=== PATIENT | male | born 1970 | race Caucasian/White ===

== ENCOUNTER 2017-09-14 08:29 | Outpatient (CLI) | payer OTHER | END 2017-09-14 20:03 | disposition home or self-care (01) | LOC: MCT 08:29 | DX: G31.89 Other specified degenerative diseases of nervous system (principal) | CPT/HCPCS: 70450 ==

== ENCOUNTER 2019-11-30 18:21 | Inpatient (IN) | payer OTHER, SELFPAY ==
[~2019-11-30] VITALS: Ht 182.9 cm; Wt 99.8 kg
[2019-11-30 18:30] VITALS: BP 108/65
[2019-11-30] MEDS ORDERED: POTA8TER12 GT (18:41)
[2019-11-30] MEDS ORDERED: ASPI-1822 GT (18:41)
[2019-11-30] MEDS ORDERED: ASCO500T95 GT (18:41)
[2019-11-30] MEDS ORDERED: MULT-1868 GT (18:41)
[2019-11-30] MEDS ORDERED: SENN-74 GT (18:41)
[2019-11-30] MEDS ORDERED: FURO-572 GT (18:41)
[2019-11-30] MEDS ORDERED: ATOR20TA GT (18:41)
[2019-11-30] MEDS ORDERED: KEP500L GT (18:41)
[2019-11-30] MEDS ORDERED: OMEP20EC11 GT (18:41)
[2019-11-30] MEDS ORDERED: NACL 0.9% 1,000 ML IV SCH (18:46)
[2019-11-30] MEDS ORDERED: cefTRIAXone 1,000 MG in DEXT 5% MINI-BAG PLUS 50 ML IV ONE (18:50)
[2019-11-30] MEDS ORDERED: ACETAMINOPHEN 325 MG SUPP RC ONE (18:50)
[2019-11-30] MEDS ORDERED: cefTRIAXone 1,000 MG VIAL ONE (19:18)
[2019-11-30 19:46] LABS: BASOPHILS % (AUTO) 0.4 % (0.0-2.0); EOSINOPHILS # (AUTO) 0.2 K/uL (0-0.4); EOSINOPHILS % (AUTO) 2.7 % (0.0-4.0); HEMATOCRIT 46.6 % (36-52); HEMOGLOBIN 15.3 g/dL (12.0-18.0); LYMPHOCYTES # (AUTO) 0.4 K/uL (2.0-11.5); LYMPHOCYTES % (AUTO) 6.5 % (20.5-51.1); MEAN CORPUSCULAR HEMOGLOBIN 30 pg (27-31); MEAN CORPUSCULAR HGB CONC 33 g/dL (33-37); MEAN CORPUSCULAR VOLUME 92.6 fL (80-94); MONOCYTES # (AUTO) 0.7 K/uL (0.8-1.0); MONOCYTES % (AUTO) 12.5 % (1.7-9.3); NEUTROPHILS # (AUTO) 4.4 K/uL (1.8-7.7); NEUTROPHILS % (AUTO) 77.9 % (42.2-75.2); PLATELET COUNT (AUTO) 148 K/uL (140-450); RED BLOOD CELL COUNT(AUTO) 5.03 MIL/uL (4.20-6.10); RED CELL DISTRIBUTION WIDTH 14.5 % (11.6-13.7); WHITE BLOOD COUNT (AUTO) 5.7 K/uL (4.8-10.8)
[2019-11-30 19:56] LABS: ALBUMIN 3.8 g/dL (3.4-5.0); ANION GAP 12.9 (8-16); POTASSIUM 3.9 mmol/L (3.5-5.1); PROTHROMBIN TIME 10.7 secs (10.8-13.4)
[2019-11-30 20:00] LABS: APPEARANCE,URINE CLEAR (CLEAR); BILIRUBIN,URINE NEGATIVE (NEGATIVE); BLOOD, URINE 1+ (NEGATIVE); COLOR,URINE YELLOW (YELLOW); LEUKOCYTE ESTERASE ,URINE NEGATIVE (NEGATIVE); NITRITE, URINE NEGATIVE (NEGATIVE); PH,URINE 8.5 (5.0-9.0); UGLUCOSE NEGATIVE (NEGATIVE)
[2019-11-30 20:25] LABS: RBC,URINE 20-50 /HPF (0-5); WBC,URINE 0-5 /HPF (0-5)
[2019-11-30] MEDS: NACL 0.9% 1,000 ML IV SCH (20:33)
[2019-11-30] MEDS ORDERED: ACETAMINOPHEN 325 MG TAB PO PRN (20:35)
[2019-11-30] MEDS ORDERED: ONDANSETRON 4 MG/2 ML VIAL IM/IVP PRN (20:35)
[2019-11-30] MEDS ORDERED: DOCUSATE SODIUM 100 MG GELCAP PO PRN (20:35)
[2019-11-30] MEDS ORDERED: HYDROcodone/APAP 7.5/325 MG 1 TAB PO PRN (20:35)
[2019-11-30] MEDS ORDERED: NACL 0.9% 1,000 ML IV ONE ×2 (21:00→22:05)
[2019-11-30] MEDS ORDERED: PIPERACILLIN/TAZOBACTAM 3.375 GM in DEXTROSE 5% 50 ML IV ONE (21:00)
[2019-11-30 21:05] LABS: CHOL/HDL RATIO 2.7 (1-4.5); MAGNESIUM 2.1 mg/dL (1.8-2.4); PHOSPHORUS 2.6 mg/dL (2.5-4.9); THYROID STIMULATING HORMONE 0.8 uIU/mL (0.34-3.74)
[2019-11-30] MEDS ORDERED: PIPERACILLIN/TAZOBACTAM 3.375 GM VIAL IV ONE (21:06)
[2019-11-30 22:14] LABS: BARBITURATE, URINE NEGATIVE ng/ml (NEG <=200); BENZODIAZEPINE, URINE NEGATIVE ng/mL (NEG <=200); CANNABINOID, URINE NEGATIVE ng/mL (NEG <=50); COCAINE, URINE NEGATIVE ng/mL (NEG <=300); OPIATE, URINE NEGATIVE ng/mL (NEG <=2000); PHENCYCLIDINE SCREEN,URINE NEGATIVE ng/mL (NEG <=25)
[2019-12-01] MEDS ORDERED: DEXAMETHASONE 4 MG/ML VIAL PO ONE (01:55)
[2019-12-01] MEDS ORDERED: ADENOSINE 6 MG/2 ML VIAL IVP ONE (02:20)
[2019-12-01] MEDS ORDERED: AZITHROMYCIN 250 MG TAB GT ONE (05:00)
[2019-12-01 07:07] LABS: MYOGLOBIN, SERUM 46 ng/mL (28-72)
[2019-12-01 07:48] LABS: BASOPHILS % (AUTO) 0.4 % (0.0-2.0); EOSINOPHILS % (AUTO) 0.2 % (0.0-4.0); HEMATOCRIT 42.2 % (36-52); LYMPHOCYTES # (AUTO) 0.8 K/uL (2.0-11.5); LYMPHOCYTES % (AUTO) 9.7 % (20.5-51.1); MEAN CORPUSCULAR HEMOGLOBIN 31 pg (27-31); MEAN CORPUSCULAR HGB CONC 33 g/dL (33-37); MEAN CORPUSCULAR VOLUME 92.2 fL (80-94); MONOCYTES % (AUTO) 13.1 % (1.7-9.3); NEUTROPHILS % (AUTO) 76.6 % (42.2-75.2); PLATELET COUNT (AUTO) 133 K/uL (140-450); RED BLOOD CELL COUNT(AUTO) 4.57 MIL/uL (4.20-6.10); RED CELL DISTRIBUTION WIDTH 14.3 % (11.6-13.7); WHITE BLOOD COUNT (AUTO) 7.8 K/uL (4.8-10.8)
[2019-12-01 08:34] LABS: ALBUMIN 3.2 g/dL (3.4-5.0); ANION GAP 12.5 (8-16); CARBON DIOXIDE 26.3 mmol/L (21-32); PHOSPHORUS 2.6 mg/dL (2.5-4.9); POTASSIUM 3.8 mmol/L (3.5-5.1); TOTAL BILIRUBIN 1.1 mg/dL (0.0-1.0)
[2019-12-01] MEDS ORDERED: ENOXAPARIN 40 MG/0.4 ML SYR SUBQ ONE (09:00)
[2019-12-01] MEDS ORDERED: DEXAMETHASONE 4 MG TAB PO SCH (09:00)
[2019-12-01] MEDS ORDERED: NON-FORMULARY ITEM (Omeprazole* (Prilosec*) 20 MG) GT SCH (09:00)
[2019-12-01] MEDS ORDERED: DEXAMETHASONE 6 MG TAB PO SCH ×2 (09:55→09:57)
[2019-12-01] MEDS: ASPIRIN 81 MG TAB.CHEW GT SCH (10:32)
[2019-12-01] MEDS: VITAMIN D 400 IU TAB PO SCH (10:33)
[2019-12-01] MEDS: ASCORBIC ACID 500 MG TAB PO SCH (10:33)
[2019-12-01] MEDS: levETIRAcetam 100 MG/ML ORASYR GT SCH ×2 (10:33→22:20)
[2019-12-01] MEDS: ZINC SULF 220 MG CAP PO SCH (10:34)
[2019-12-01] MEDS: ENOXAPARIN 40 MG/0.4 ML SYR SUBQ SCH (10:36)
[2019-12-01] MEDS ORDERED: NACL 0.9% 1,000 ML IV SCH (10:40)
[2019-12-01] MEDS ORDERED: cefTRIAXone 1,000 MG VIAL ONE (18:23)
[2019-12-01] MEDS: NACL 0.9% 1,000 ML IV SCH (21:42)
[2019-12-01] MEDS ORDERED: CRUSHER, PILL MC ONE (21:58)
[2019-12-01] MEDS: ATORVASTATIN 20 MG TAB GT SCH (22:20)
[2019-12-01] MEDS: SENNA 8.6 MG TAB GT SCH (22:20)
[2019-12-02] VITALS: BP 104/61
[2019-12-02 04:00] VITALS: BP 107/74
[2019-12-02] MEDS: LANSOPRAZOLE 30 MG CAPDR GT SCH (07:03)
[2019-12-02 07:15] LABS: BASOPHILS # (AUTO) 0.1 K/uL (0.00-0.22); BASOPHILS % (AUTO) 1.7 % (0.0-2.0); HEMATOCRIT 41.9 % (36-52); HEMOGLOBIN 13.7 g/dL (12.0-18.0); LYMPHOCYTES # (AUTO) 0.6 K/uL (2.0-11.5); LYMPHOCYTES % (AUTO) 11.1 % (20.5-51.1); MEAN CORPUSCULAR HEMOGLOBIN 30 pg (27-31); MEAN CORPUSCULAR HGB CONC 33 g/dL (33-37); MEAN CORPUSCULAR VOLUME 92.7 fL (80-94); MONOCYTES # (AUTO) 0.6 K/uL (0.8-1.0); MONOCYTES % (AUTO) 10.7 % (1.7-9.3); NEUTROPHILS # (AUTO) 4.1 K/uL (1.8-7.7); NEUTROPHILS % (AUTO) 76.5 % (42.2-75.2); PLATELET COUNT (AUTO) 113 K/uL (140-450); RED BLOOD CELL COUNT(AUTO) 4.52 MIL/uL (4.20-6.10); RED CELL DISTRIBUTION WIDTH 14.7 % (11.6-13.7); WHITE BLOOD COUNT (AUTO) 5.4 K/uL (4.8-10.8)
[2019-12-02 07:19] LABS: T4 (THYROXINE) 5.7 ug/dL (4.5-12.0)
[2019-12-02 07:27] LABS: ANION GAP 12.1 (8-16); CARBON DIOXIDE 26.2 mmol/L (21-32); CREATININE 0.8 mg/dL (0.6-1.3); POTASSIUM 4.3 mmol/L (3.5-5.1)
[2019-12-02 07:34] LABS: MAGNESIUM 2.2 mg/dL (1.8-2.4); PHOSPHORUS 2.2 mg/dL (2.5-4.9)
[2019-12-02 08:00] VITALS: BP 130/65
[2019-12-02] MEDS: ASPIRIN 81 MG TAB.CHEW GT SCH (08:31)
[2019-12-02] MEDS: DEXAMETHASONE 6 MG TAB PO SCH (08:31)
[2019-12-02] MEDS: ASCORBIC ACID 500 MG TAB PO SCH (08:31)
[2019-12-02] MEDS: levETIRAcetam 100 MG/ML ORASYR GT SCH ×2 (08:31→21:55)
[2019-12-02] MEDS: VITAMIN D 400 IU TAB PO SCH (08:31)
[2019-12-02] MEDS: ZINC SULF 220 MG CAP PO SCH (08:31)
[2019-12-02] MEDS: AZITHROMYCIN 250 MG TAB GT SCH (08:31)
[2019-12-02] MEDS: ENOXAPARIN 40 MG/0.4 ML SYR SUBQ SCH (08:32)
[2019-12-02 12:00] VITALS: BP 105/67
[2019-12-02 16:00] VITALS: BP 108/56
[2019-12-02] MEDS: NACL 0.9% 1,000 ML IV SCH (20:33)
[2019-12-02] MEDS: ATORVASTATIN 20 MG TAB GT SCH (21:55)
[2019-12-02] MEDS: SENNA 8.6 MG TAB GT SCH (21:55)
[2019-12-03] VITALS: BP 113/63
[2019-12-03] MEDS: LANSOPRAZOLE 30 MG CAPDR GT SCH (06:15)
[2019-12-03 08:00] VITALS: BP 131/54
[2019-12-03 08:08] LABS: ANION GAP 14.8 (8-16); CARBON DIOXIDE 23.8 mmol/L (21-32); CREATININE 0.8 mg/dL (0.6-1.3); POTASSIUM 4.6 mmol/L (3.5-5.1)
[2019-12-03 08:12] LABS: MAGNESIUM 2.1 mg/dL (1.8-2.4); PHOSPHORUS 2.3 mg/dL (2.5-4.9)
[2019-12-03 08:52] LABS: BASOPHILS % (AUTO) 0.5 % (0.0-2.0); HEMATOCRIT 41.6 % (36-52); HEMOGLOBIN 13.5 g/dL (12.0-18.0); LYMPHOCYTES # (AUTO) 1.1 K/uL (2.0-11.5); LYMPHOCYTES % (AUTO) 14.8 % (20.5-51.1); MEAN CORPUSCULAR HEMOGLOBIN 31 pg (27-31); MEAN CORPUSCULAR HGB CONC 32 g/dL (33-37); MEAN CORPUSCULAR VOLUME 93.9 fL (80-94); MONOCYTES # (AUTO) 1.2 K/uL (0.8-1.0); MONOCYTES % (AUTO) 16.5 % (1.7-9.3); NEUTROPHILS # (AUTO) 5.1 K/uL (1.8-7.7); NEUTROPHILS % (AUTO) 68.2 % (42.2-75.2); PLATELET COUNT (AUTO) 146 K/uL (140-450); RED BLOOD CELL COUNT(AUTO) 4.43 MIL/uL (4.20-6.10); RED CELL DISTRIBUTION WIDTH 14.8 % (11.6-13.7); WHITE BLOOD COUNT (AUTO) 7.5 K/uL (4.8-10.8)
[2019-12-03] MEDS: ASCORBIC ACID 500 MG TAB PO SCH (09:55)
[2019-12-03] MEDS: ZINC SULF 220 MG CAP PO SCH (09:55)
[2019-12-03] MEDS: ASPIRIN 81 MG TAB.CHEW GT SCH (09:55)
[2019-12-03] MEDS: DEXAMETHASONE 6 MG TAB PO SCH (09:55)
[2019-12-03] MEDS: levETIRAcetam 100 MG/ML ORASYR GT SCH ×2 (09:56→22:37)
[2019-12-03] MEDS: AZITHROMYCIN 250 MG TAB GT SCH (09:56)
[2019-12-03] MEDS: ENOXAPARIN 40 MG/0.4 ML SYR SUBQ SCH (09:57)
[2019-12-03] MEDS: VITAMIN D 400 IU TAB PO SCH (10:14)
[2019-12-03] MEDS ORDERED: ZOLPIDEM 10 MG TAB PO PRN (10:45)
[2019-12-03] MEDS ORDERED: DOCUSATE SODIUM 100 MG GELCAP PO PRN (10:45)
[2019-12-03] MEDS ORDERED: ACETAMINOPHEN 325 MG TAB PO PRN (10:45)
[2019-12-03] MEDS ORDERED: POTASSIUM CHLORIDE 10 MEQ TABER PO PRN (10:45)
[2019-12-03] MEDS ORDERED: MAG SULF 2000 MG/WATER PREMIX 50 ML IV PRN (10:45)
[2019-12-03] MEDS ORDERED: ONDANSETRON 4 MG/2 ML VIAL IVP PRN (10:45)
[2019-12-03] MEDS ORDERED: MORPHINE SULFATE 2 MG/ML SYR IVP PRN (10:45)
[2019-12-03] MEDS ORDERED: LORazepam 2 MG/ML VIAL IVP PRN (10:45)
[2019-12-03 15:11] LABS: LACTATE DEHYDROGENASE 184 IU/L (121-224)
[2019-12-03 16:00] VITALS: BP 105/46
[2019-12-03 20:02] LABS: FERRITIN 657 ng/mL (30 - 400)
[2019-12-03] MEDS: NACL 0.9% 1,000 ML IV SCH (20:33)
[2019-12-03] MEDS ORDERED: remdesivir COMMUNICATION ORDER 1 EA MISC MC PRN (21:35)
[2019-12-03] MEDS: ATORVASTATIN 20 MG TAB GT SCH (22:37)
[2019-12-03] MEDS: SENNA 8.6 MG TAB GT SCH (22:37)
[2019-12-04 01:14] VITALS: BP 131/55
[2019-12-04 04:28] VITALS: BP 134/72
[2019-12-04] MEDS: LANSOPRAZOLE 30 MG CAPDR GT SCH (06:34)
[2019-12-04 08:17] LABS: BASOPHILS % (AUTO) 0.9 % (0.0-2.0); HEMATOCRIT 38.6 % (36-52); HEMOGLOBIN 12.8 g/dL (12.0-18.0); LYMPHOCYTES # (AUTO) 0.8 K/uL (2.0-11.5); MEAN CORPUSCULAR HEMOGLOBIN 31 pg (27-31); MEAN CORPUSCULAR HGB CONC 33 g/dL (33-37); MEAN CORPUSCULAR VOLUME 92.3 fL (80-94); MONOCYTES # (AUTO) 0.6 K/uL (0.8-1.0); MONOCYTES % (AUTO) 19.4 % (1.7-9.3); NEUTROPHILS # (AUTO) 1.9 K/uL (1.8-7.7); NEUTROPHILS % (AUTO) 56.7 % (42.2-75.2); PLATELET COUNT (AUTO) 109 K/uL (140-450); RED BLOOD CELL COUNT(AUTO) 4.18 MIL/uL (4.20-6.10); RED CELL DISTRIBUTION WIDTH 14.4 % (11.6-13.7); WHITE BLOOD COUNT (AUTO) 3.4 K/uL (4.8-10.8)
[2019-12-04 08:20] LABS: ANION GAP 11.5 (8-16); CARBON DIOXIDE 28.2 mmol/L (21-32); CREATININE 0.8 mg/dL (0.6-1.3); POTASSIUM 4.7 mmol/L (3.5-5.1)
[2019-12-04] MEDS: ENOXAPARIN 40 MG/0.4 ML SYR SUBQ SCH (09:00)
[2019-12-04] MEDS: DEXAMETHASONE 6 MG TAB PO SCH (10:15)
[2019-12-04] MEDS: VITAMIN D 400 IU TAB PO SCH (10:15)
[2019-12-04] MEDS: ASPIRIN 81 MG TAB.CHEW GT SCH (10:15)
[2019-12-04] MEDS: levETIRAcetam 100 MG/ML ORASYR GT SCH ×2 (10:15→21:01)
[2019-12-04] MEDS: ASCORBIC ACID 500 MG TAB PO SCH (10:15)
[2019-12-04] MEDS: ZINC SULF 220 MG CAP PO SCH (10:15)
[2019-12-04 10:40] VITALS: BP 123/67
[2019-12-04 13:00] VITALS: BP 123/67
[2019-12-04 16:50] VITALS: BP 121/56
[2019-12-04] MEDS: NACL 0.9% 1,000 ML IV SCH (20:33)
[2019-12-04] MEDS: ATORVASTATIN 20 MG TAB GT SCH (21:01)
[2019-12-04] MEDS: SENNA 8.6 MG TAB GT SCH (21:01)
[2019-12-05] VITALS: BP 137/75
[2019-12-05] MEDS: LANSOPRAZOLE 30 MG CAPDR GT SCH (05:56)
[2019-12-05 06:18] LABS: BASOPHILS % (AUTO) 0.7 % (0.0-2.0); EOSINOPHILS % (AUTO) 0.1 % (0.0-4.0); HEMATOCRIT 36.6 % (36-52); HEMOGLOBIN 12.2 g/dL (12.0-18.0); LYMPHOCYTES # (AUTO) 0.6 K/uL (2.0-11.5); LYMPHOCYTES % (AUTO) 14.9 % (20.5-51.1); MEAN CORPUSCULAR HEMOGLOBIN 31 pg (27-31); MEAN CORPUSCULAR HGB CONC 33 g/dL (33-37); MEAN CORPUSCULAR VOLUME 91.8 fL (80-94); MONOCYTES # (AUTO) 0.7 K/uL (0.8-1.0); NEUTROPHILS # (AUTO) 2.8 K/uL (1.8-7.7); NEUTROPHILS % (AUTO) 68.3 % (42.2-75.2); PLATELET COUNT (AUTO) 109 K/uL (140-450); RED BLOOD CELL COUNT(AUTO) 3.99 MIL/uL (4.20-6.10); RED CELL DISTRIBUTION WIDTH 14.5 % (11.6-13.7); WHITE BLOOD COUNT (AUTO) 4.1 K/uL (4.8-10.8)
[2019-12-05 07:09] LABS: ANION GAP 17.1 (8-16); CARBON DIOXIDE 29.7 mmol/L (21-32); CREATININE 0.8 mg/dL (0.6-1.3); POTASSIUM 4.8 mmol/L (3.5-5.1)
[2019-12-05 08:00] VITALS: BP 137/76
[2019-12-05] MEDS: ASPIRIN 81 MG TAB.CHEW GT SCH (09:00)
[2019-12-05] MEDS: ZINC SULF 220 MG CAP PO SCH (09:00)
[2019-12-05] MEDS: DEXAMETHASONE 6 MG TAB PO SCH (09:00)
[2019-12-05] MEDS: ENOXAPARIN 40 MG/0.4 ML SYR SUBQ SCH (09:00)
[2019-12-05] MEDS: VITAMIN D 400 IU TAB PO SCH (09:00)
[2019-12-05] MEDS: ASCORBIC ACID 500 MG TAB PO SCH (09:00)
[2019-12-05] MEDS: levETIRAcetam 100 MG/ML ORASYR GT SCH (09:00)
[2019-12-06 06:07] LABS: LD1 FRACTION 24 % (17-32); LD2 FRACTION 30 % (25-40); LD3 FRACTION 22 % (17-27); LD4 FRACTION 9 % (5-13); LD5 FRACTION 15 % (4-20)
== END 2019-12-05 16:30 | DRG 177 ==
LOC: MED 18:21 → EEVIPCON 18:21 → MTU 20:36
PROVIDERS: ADMIT General Practice; ATTEND General Practice
DX: U07.1 COVID-19 (principal); R53.2 Functional quadriplegia; J12.89 Other viral pneumonia; R65.10 Systemic inflammatory response syndrome (SIRS) of non-infectious origin without acute organ dysfunction; Z88.1 Allergy status to other antibiotic agents; F03.90 Unspecified dementia, unspecified severity, without behavioral disturbance, psychotic disturbance, mood disturbance, and anxiety; E11.9 Type 2 diabetes mellitus without complications; E78.5 Hyperlipidemia, unspecified; I10 Essential (primary) hypertension; Z66 Do not resuscitate; K59.00 Constipation, unspecified; R13.10 Dysphagia, unspecified; D69.6 Thrombocytopenia, unspecified; E78.00 Pure hypercholesterolemia, unspecified; R00.1 Bradycardia, unspecified; Z93.1 Gastrostomy status; Z79.899 Other long term (current) drug therapy; Z79.82 Long term (current) use of aspirin; Z74.01 Bed confinement status; Z87.820 Personal history of traumatic brain injury; Z95.0 Presence of cardiac pacemaker
CPT/HCPCS: 36415; 71045; 80048; 80053; 80305; 81001; 82150; 82550; 82553; 82728; 83036; 83605; 83615; 83625; 83690; 83735; 83874; 83880; 84100; 84436; 84443; 84484; 85025; 85379; 85610; 85651; 85730; 86140; 86886; 86900; 86901; 87040; 87081; 87086; 87804; 93005; C1758; J0696; J1650; J2543; J7030; J7060; Q0092; U0003-CS